=== PATIENT | female | born 1970 | race African-American/Black ===

== ENCOUNTER 2020-01-29 09:03 | Emergency (ER) | payer OTHER ==
[2020-01-29] MEDS ORDERED: Acetaminophen 500 MG Tab PO ONE (09:35)
[2020-01-29] MEDS ORDERED: Ketorolac 15 MG/ML SDV IM ONE (09:35)
[2020-01-29] MEDS ORDERED: Cyclobenzaprine 10 MG Tab PO ONE (09:36)
--- NOTE | 2020-01-29 09:43 | EDM.PDOC ---
ED HPI GENERAL MEDICAL PROBLEM - General Chief Complaint: Back Pain or Injury Stated Complaint: LOWER BACK PAIN ON RIGHT SIDE Time Seen by Provider: 01/29/20 09:29 Source of Information: Reports: Patient History Limitations: Reports: No Limitations - History of Present Illness INITIAL COMMENTS - FREE TEXT/NARRATIVE: 49F presents for R sided flank/low back pain radiating to groin. Started 4 days ago and is constant. Denies hematuria/dysuria. No h/o renal stones. Does have back pain history, but this feels different and typical low back pain does not radiate to groin. No N/V. No abdominal pain. Right Lower Back Pain Score (Numeric/FACES): 5 - Related Data Allergies Allergy/AdvReac Type Severity Reaction Status Date / Time No Known Allergies Allergy Verified 01/29/20 09:24 Home Meds: Home Meds Cyclobenzaprine [Flexeril] 10 mg PO TID PRN 3 Days #12 tab 01/29/20 [Rx] Ibuprofen [Motrin] 600 mg PO Q6H PRN 10 Days #28 tab 01/29/20 [Rx] Past Medical History - Past Health History Medical/Surgical History: Denies Medical/Surgical History - Infectious Disease History Infectious Disease History: Reports: None Social & Family History - Family History Family Medical History: Noncontributory - Tobacco Use Smoking Status *Q: Never Smoker Second Hand Smoke Exposure: No - Caffeine Use Caffeine Use: Reports: Tea - Recreational Drug Use Recreational Drug Use: No ED ROS GENERAL - Review of Systems Review Of Systems: Comprehensive ROS is negative, except as noted in HPI. ED EXAM,LOWER BACK PAIN/INJURY - Physical Exam Exam: See Below Exam Limited By: No Limitations General Appearance: Alert, WD/WN, No Apparent Distress Head: Atraumatic, Normocephalic Respiratory/Chest: No Respiratory Distress, Lungs Clear, Normal Breath Sounds, No Accessory Muscle Use Cardiovascular: Normal Peripheral Pulses, Regular Rate, Rhythm GI/Abdominal: Soft, Non-Tender Course - Vital Signs Last Recorded V/S: Last Vital Signs Temp 97.7 F 01/29/20 09:25 Pulse 80 01/29/20 09:25 Resp 14 01/29/20 09:25 BP 140/96 H 01/29/20 09:25 Pulse Ox 100 01/29/20 09:25 - Orders/Labs/Meds Labs: Laboratory Tests 01/29/20 Range/Units 09:56 Urine Color YELLOW Urine Appearance CLEAR Urine pH 6.0 (5.0-8.0) Ur Specific [place] 1.025 (1.001-1.035) Urine Protein NEGATIVE (NEGATIVE) mg/dL Urine Glucose (UA) NEGATIVE (NEGATIVE) mg/dL Urine Ketones NEGATIVE (NEGATIVE) mg/dL Urine Occult Blood MODERATE H (NEGATIVE) Urine Nitrite NEGATIVE (NEGATIVE) Urine Bilirubin NEGATIVE (NEGATIVE) Urine Urobilinogen 0.2 (<2.0) EU/dL Ur Leukocyte Esterase NEGATIVE (NEGATIVE) Urine RBC 1-2 (0-2/HPF) Urine WBC 0-1 (0-5/HPF) Ur Epithelial Cells OCCASIONAL (NONE-FEW) Urine Bacteria RARE (NEGATIVE) Meds: Medications Discontinued Medications Generic Name Dose Route Start Last Admin Trade Name Freq PRN Reason Stop Dose Admin Acetaminophen 1,000 mg 01/29/20 09:35 01/29/20 09:55 Tylenol Extra Strength PO 01/29/20 09:36 1,000 mg ONETIME ONE Administration Cyclobenzaprine HCl 10 mg 01/29/20 09:36 01/29/20 09:55 Flexeril PO 01/29/20 09:37 10 mg ONETIME ONE Administration Ketorolac Tromethamine 30 mg 01/29/20 09:35 01/29/20 09:55 Toradol IM 01/29/20 09:36 30 mg ONETIME ONE Administration - Re-Assessments/Exams Free Text/Narrative Re-Assessment/Exam: 01/29/20 10:38 UA with hematuria; will get CT stone study 01/29/20 11:28 Patient symptomatically improved. No evidence acute pathology on CT report; there is a lung finding but patient is non-smoker. Will d/c with flexeril and motrin Departure - Departure Time of Disposition: 11:08 Disposition: Home, Self-Care 01 Condition: Good Clinical Impression: Back pain Qualifiers: Back pain location: low back pain Chronicity: acute Back pain laterality: right Sciatica presence: with sciatica Sciatica laterality: sciatica of right side Qualified Code(s): M54.41 - Lumbago with sciatica, right side - Discharge Information Prescriptions: Cyclobenzaprine [Flexeril] 10 mg PO TID PRN 3 Days #12 tab PRN Reason: Muscle Spasm Ibuprofen [Motrin] 600 mg PO Q6H PRN 10 Days #28 tab PRN Reason: Pain Instructions: Acute Back Pain, Adult Referrals: PMD, PMD [Other] Forms: ED Department Discharge Additional Instructions: The following information is given to patients seen in the emergency department who are being discharged to home. This information is to outline your options for follow-up care. We provide all patients seen in our emergency department with a follow-up referral. The need for follow-up, as well as the timing and circumstances, are variable depending upon the specifics of your emergency department visit. If you don't have a primary care physician on staff, we will provide you with a referral. We always advise you to contact your personal physician following an emergency department visit to inform them of the circumstance of the visit and for follow-up with them and/or the need for any referrals to a consulting specialist. The emergency department will also refer you to a specialist when appropriate. This referral assures that you have the opportunity for follow-up care with a specialist. All of these measure are taken in an effort to provide you with optimal care, which includes your follow-up. Under all circumstances we always encourage you to contact your private physician who remains a resource for coordinating your care. When calling for follow-up care, please make the office aware that this follow-up is from your recent emergency room visit. If for any reason you are refused follow-up, please contact the [facility] Emergency Department at and asked to speak to the emergency department charge nurse. Sepsis Event Note (ED) - Evaluation Sepsis Screening Result: No Definite Risk - Focused Exam Vital Signs: Vital Signs Temp Pulse Resp BP Pulse Ox 01/29/20 09:25 97.7 F 80 14 140/96 H 100
--- NOTE | 2020-01-29 11:02 | CT ---
CT abdomen and pelvis Technique: Multiple axial sections were obtained from above the dome of the diaphragm inferiorly through the pubic symphysis. Intravenous and oral contrast not utilized. Study has been performed as a ureteral stone protocol. Findings: Kidneys show no abnormal calcifications. No ureteral dilatation is seen. No ureteral calcifications are seen. Visualized lung bases shows a small nodule on the left side measuring 3.5 mm. Noncontrast appearance of the liver shows no focal parenchymal abnormality. Spleen appears within normal limits. Soft tissue nodule is noted inferior to the spleen most likely due to accessory splenic tissue. Adrenal glands show no nodule. No discrete abnormality within the pancreas is appreciated. Gallbladder contains no calcified gallstones. Aorta shows no aneurysm. No retroperitoneal adenopathy or mesenteric abnormalities are seen. No pelvic mass or adenopathy is identified. No free fluid or inflammatory change is appreciated. Appendix not visualized with certainty. Bone window settings were reviewed. No acute osseous finding is seen. Impression: 1. No renal calculi, ureteral dilatation or ureteral stone is seen. 2. Nothing acute is appreciated on noncontrast CT study of the abdomen and pelvis. 3. 3.5 mm nodule within the left lung base. If patient is a smoker, recommend chest CT in 9 months. If patient is not a smoker, this can be ignored. Diagnostic code #3 This report was dictated in MDT
== END 2020-01-29 11:20 | disposition home or self-care (01) ==
LOC: MW.ED 09:03
DX: M54.41 Lumbago with sciatica, right side (principal); Z79.899 Other long term (current) drug therapy
CPT/HCPCS: 74176; 81001; 96372; 99284; A9270; J1885; 99283